=== PATIENT | male | born 1980 | race Two or more races ===

== ENCOUNTER 2024-09-20 10:07 | Outpatient (AMB) | payer MEDICAID, SELFPAY ==
[2024-09-20 10:09] VITALS: BP 154/100; PULSE 89; O2SAT 98
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
--- OUTSIDE RECORDS SUMMARY | 2024-09-20 11:27 | XMS_ITS | Clinical Summary ---
Author Organization [facility] Address [address] [place] [address] Phone Care Team Providers Care Senior Technical Support Engineer Name Role Phone Tal Phoenix MD Primary Care Provider [phone] Allergies No known active allergies Medications gabapentin (NEURONTIN) 300 mg capsule Take 1 capsule (300 mg total) by mouth 3 (three) times a day for 15 days. 45 each 03/01/2024 Active Social History Tobacco Use Types Packs/Day Years Used Date Smoking Tobacco: Never Smokeless Tobacco: Never Tobacco Cessation:Counseling Given: Not Answered Alcohol Use Standard Drinks/Week Comments Not Currently 0 (1 standard drink = 0.6 oz pur e alcohol) Sex and Gender Information Value Date Recorded Sex Assigned at Not on file Legal Sex Male 3:00 AM EST Gender Identity Not on file Sexual Orientation Not on file Obstetrics History Last Filed Vital Signs Vital Sign Reading Time Taken Comments Blood Pressure 201/91 03/01/2024 2:49 AM EST Pulse 86 03/01/2024 2:49 AM EST Temperature 37 C (98.6 F) 03/01/2024 2:49 AM EST Respiratory Rate 18 03/01/2024 2:49 AM EST Oxygen Saturation 97% 03/01/2024 2:49 AM EST Inhaled Oxygen Concentration - - Weight 161 kg (354 lb) 03/01/2024 2:49 AM EST Height 185.4 cm (6' 1 ) 03/01/2024 2:49 AM EST Body Mass Index 46.7 03/01/2024 2:49 AM EST Plan of Treatment Health Maintenance Due Date Last Done Comments HIV Screening 03/07/2022 Social Influencers of Health Screening 03/07/2022 COVID-19 Vaccine (2 - 2023-2 5 season) 2023 05/20/2021 Hypertension/CHF/CAD Annual BMP Blood Test 03/01/2024 Hepatitis B Vaccines (2 of 2 - CpG 2-dose series) 03/23/2024 02/24/2024 Depression Screening 02/23/2025 02/24/2024 Cholesterol Screening (Lipid Panel) 05/19/2027 05/19/2022, 05/19/2022 DTaP,Tdap,and Td Vaccines (2 - Td or Tdap) 11/14/2031 11/13/2021 Hepatitis C Screening Completed 05/20/2021 Influenza Vaccine Completed 02/24/2024 HIB Vaccines Aged Out No longer eligi ble based on patient's age to complete this topic HPV Vaccines Aged Out No longer eligi ble based on patient's age to complete this topic Hepatitis A Vaccines Aged Out No long er eligible based on patient's age to complete this topic IPV Vaccines Aged Out No longer eligi ble based on patient's age to complete this topic MMR Vaccines Aged Out No longer eligi ble based on patient's age to complete this topic Meningococcal ACWY Vaccine Aged Out N o longer eligible based on patient's age to complete this topic Meningococcal B Vaccine Aged Out No l onger eligible based on patient's age to complete this topic Pneumococcal Vaccine: Pediatrics (0 to 5 Years) and At-Risk Patients (6 to 64 Years) Aged Out No longer eligible b ased on patient's age to complete this topic RSV Immunization Patients Under 20 months Aged Out No longer eligible b ased on patient's age to complete this topic Varicella Vaccines Aged Out No longer eligible based on patient's age to complete this topic Insurance [employer] MEDICAID - [place] Care Teams Senior Technical Support Engineer Relationship Specialty Start Date End Date Tal Phoenix MD [address] [place] [id number] PCP - General Cardiology 03/01/24
== END 2024-09-20 11:34 | disposition home or self-care (01) ==
LOC: HO.HSMS 10:08
PROVIDERS: PCP Student in an Organized Health Care Education/Training Program; Visit Provider Nurse Practitioner Family
DX: G47.33 Obstructive sleep apnea (adult) (pediatric) (principal); F07.81 Postconcussional syndrome; G44.309 Post-traumatic headache, unspecified, not intractable; E66.01 Morbid (severe) obesity due to excess calories
CPT/HCPCS: 99204

== ENCOUNTER → 2024-09-20 10:07 | Outpatient (BNVA) | payer MEDICAID, SELFPAY | PROVIDERS: PCP Student in an Organized Health Care Education/Training Program; Visit Provider Nurse Practitioner Family | DX: G43.009 Migraine without aura, not intractable, without status migrainosus (principal); F07.81 Postconcussional syndrome; G47.33 Obstructive sleep apnea (adult) (pediatric); E66.01 Morbid (severe) obesity due to excess calories; Z68.45 Body mass index [BMI] 70 or greater, adult | CPT/HCPCS: 99212 ==

== ENCOUNTER 2024-09-21 09:21 | Outpatient (AMB) | payer MEDICAID, SELFPAY ==
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
[2024-09-21 09:32] VITALS: BMI 46.4
--- OUTSIDE RECORDS SUMMARY | 2024-09-21 09:39 | XMS_ITS | Clinical Summary ---
Author Organization [facility] Address [address] [place] [address] Phone Care Team Providers Care Cancer Registry Coordinator Name Role Phone Tal Phoenix MD Primary Care Provider [phone] Allergies No known active allergies Medications gabapentin [...] GENERIC PLAN MEDICAID - [place] Care Teams Cancer Registry Coordinator Relationship Specialty Start Date End Date Tal Phoenix MD [address] [place] [phone] PCP - General Cardiology 03/01/24
== END 2024-09-21 10:24 | disposition home or self-care (01) ==
LOC: HO.HNS 09:21
PROVIDERS: PCP Student in an Organized Health Care Education/Training Program; Visit Provider Physician Assistant
DX: M54.9 Dorsalgia, unspecified (principal)
CPT/HCPCS: 99204

== ENCOUNTER → 2024-09-21 09:21 | Outpatient (BNVA) | payer MEDICAID, SELFPAY | PROVIDERS: PCP Student in an Organized Health Care Education/Training Program; Visit Provider Physician Assistant | DX: M54.9 Dorsalgia, unspecified (principal) | CPT/HCPCS: 99212 ==

== ENCOUNTER 2024-10-19 13:47 | Outpatient (AMB) | payer MEDICAID, SELFPAY ==
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
--- OUTSIDE RECORDS SUMMARY | 2024-10-19 13:49 | XMS_ITS | Clinical Summary ---
Author Organization [facility] Address [address] [place] [address] Phone Care Team Providers Care Microbiology Professor Name Role Phone Tal Phoenix MD Primary Care Provider [phone] Allergies No known active allergies Medications gabapentin [...] Health Maintenance Due Date Last Done Comments Diabetes: Annual Foot Exam 1991 Diabetes: Annual Retina Eye Exam 1991 HIV Screening 03/07/2022 Social Influencers of Health Screening 03/07/2022 COVID-19 Vaccine ( season) 2023 05/20/2021 Diabetes: Blood Sugar Control Test (HGBA1C) 10/03/2024 04/05/2024 Influenza Vaccine (#1) 2024 02/24/2024 Diabetes: Annual Urine Albumin-Creatinine Ratio (uACR) 04/05/2025 04/05/2024 Diabetes: Annual GFR (Glomerular Filtration Rate) 04/05/2025 04/05/2024 Hypertension/CHF/CAD Annual BMP Blood Test 04/05/2025 04/05/2024 Depression Screening 08/07/2025 08/07/2024 Cholesterol Screening (Lipid Panel) 04/05/2029 04/05/2024, 04/05/2024, 05/19/2022, Additional history exists DTaP,Tdap,and Td Vaccines (2 - Td or Tdap) 11/14/2031 11/13/2021 Hepatitis C Screening Completed 05/20/2021 Hepatitis B Vaccines Completed 04/05/2024, 02/24/20 24 Pneumococcal Vaccine: Pediatrics (0 to 5 Years) and At-Risk Patients (6 to 49 Years) Aged Out 04/05/2024 No longer eligible based on patient's age to complete this topic HIB Vaccines Aged Out No longer eligi [...] 20 months Aged Out No longer eligible based on patient's age to complete this topic Varicella Vaccines Aged Out No longer eligible based on patient's age to complete this topic Insurance [employer] [facility] MEDICAID - [place] Care Teams Microbiology Professor Relationship Specialty Start Date End Date Tal Phoenix MD [address] [place] [phone] PCP - General Cardiology 03/01/24
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
== END 2024-10-19 14:39 | disposition home or self-care (01) ==
LOC: HO.HNS 13:47
PROVIDERS: PCP Student in an Organized Health Care Education/Training Program; Visit Provider Physician Assistant
DX: M54.9 Dorsalgia, unspecified (principal)
CPT/HCPCS: 99213

== ENCOUNTER → 2024-10-19 13:47 | Outpatient (BNVA) | payer MEDICAID, SELFPAY | PROVIDERS: PCP Student in an Organized Health Care Education/Training Program; Visit Provider Physician Assistant | DX: M46.1 Sacroiliitis, not elsewhere classified (principal); M54.9 Dorsalgia, unspecified | CPT/HCPCS: 99212 ==

== ENCOUNTER → 2024-10-22 20:30 | Outpatient (REF) | payer MEDICAID, SELFPAY | LOC: HO.SL 20:30 | PROVIDERS: PCP Dentist General Practice; Visit Provider Nurse Practitioner Family | DX: G47.33 Obstructive sleep apnea (adult) (pediatric) (principal); E66.01 Morbid (severe) obesity due to excess calories; Z68.41 Body mass index [BMI] 40.0-44.9, adult | CPT/HCPCS: 95810 ==

== ENCOUNTER → 2024-10-22 20:30 | Outpatient (BNV) | payer MEDICAID, SELFPAY | PROVIDERS: PCP Dentist General Practice; Visit Provider Psychiatry & Neurology Neurology | DX: G47.33 Obstructive sleep apnea (adult) (pediatric) (principal) | CPT/HCPCS: 95810 ==

== ENCOUNTER 2024-12-13 13:25 | Outpatient (AMB) | payer MEDICAID, SELFPAY ==
--- OUTSIDE RECORDS SUMMARY | 2024-12-10 14:00 | XMS_ITS | Encounter Summary ---
Author Organization [facility] Address [address] [facility] [place] [address] Care Team Providers Care Blade Filer Name Role Phone Tara Aguilar Primary Care Provider [phone] Encounter Details Date Type Department Care Team (Late st Contact Info) Description 12/10/2024 2:00 PM EDT / Visits [facility] [address] [place] [address] Tenzin Charlton LCSW [address] [place] [address] Social History Tobacco Use Types Packs/Day Years Used Date Smoking Tobacco: Former Passive Smoke Exposure: Never Smokeless Tobacco: Never Alcohol Use Standard Drinks/Week Comments Yes 0 (1 standard drink = 0.6 oz pur e alcohol) socially, once a month Social Connections Answer Date Recorded Connectedness 0 08/12/2021 Financial Resource Strain Answer Date R ecorded Financial Resource Strain 0 2021 Stress Answer Date Recorded Stress 0 08/12/2021 Physical Activity Answer Date Recorded Physical Activity 0 05/20/2021 Food Insecurity Answer Date Recorded Food 0 08/12/2021 Transportation Needs Answer Date Record ed Transportation 0 08/12/2021 Housing Stability Answer Date Recorded Housing 0 08/12/2021 Safety and Environment Answer Date Carlos rded Safety 0 08/12/2021 Utilities Answer Date Recorded Utilities 0 08/12/2021 Employment Answer Date Recorded Stress 0 08/12/2021 Sex and Gender Information Value Date Recorded Sex Assigned at Male 05/20/2021 1:36 PM PST Legal Sex Male 11:29 AM PDT Gender Identity Male 05/20/2021 1:36 PM PST Sexual Orientation Straight 05/20/2021 1: 36 PM PST documented as of this encounter Plan of Treatment Upcoming Encounters Date Type Department Care Team (Late st Contact Info) Description 12/24/2024 4:00 PM EDT / Visits [facility] [address] [place] [phone] Tenzin Charlton LCSW [address] [place] [address] documented as of this encounter Visit Diagnoses Diagnosis Anxiety- Primary Anxiety state, unspecified PTSD (post-traumatic stress disorder) Posttraumatic stress disorder Current moderate episode of major depressive disorder, unspecified whether recurrent (CMS & HHS-HCC) Current moderate episode of major depressive disorder (CMS & HHS-HCC) documented in this encounter Additional Health Concerns Assessment Noted Time PHQ-9 Depression Total Score: 26 025 9:57 AM PDT A Depression follow-up plan has been documented for the patient 05/20/2021 4:36 PM PST documented as of this encounter Care Teams Blade Filer Relationship Specialty Start Date End Date Tara Aguilar PA [address] [place] [address] PCP - General Primary Care 04/12/23 documented as of this encounter
--- NOTE | 2024-12-13 13:28 | HO.SPINEOV ---
Intake Visit Reasons: f/up injection Intake Note: Mr. Antoine is here to F/u after injections at pain management. Chief Creative Officer Required: No Allergies No Known Allergies Allergy (Verified 10/19/24 13:55) Assessment & Plan Assessment & Plan (1) Chronic SI joint pain: Code(s): M53.3 - Sacrococcygeal disorders, not elsewhere classified; G89.29 - Other chronic pain Category: Medical Plan Mr Antoine is here in follow-up after his 2nd left SI joint injection. He did get significant relief for 1 week. He was describe it as 60-70%. That is very optimistic that we could treat his back pain with the left SI joint fusion and hopefully be able to avoid fusing the L4-5 disc space. The patient has tenderness over the SI joint with positive OMAR sign and Gaenslen sign. He walks with a cane and discomfort in the SI joint area. Dr. Victor and I discussed previously he has potential for good surgical candidate and in light of the 2nd injection helping so much we are going to move forward with a left SI joint fusion. He does understand that he may need a lumbar fusion down the road at some point. We have tentatively scheduled him for January 10. The patient was given risk and benefits of surgery including but not limited to infection, hematoma, nerve injury, durotomy, weakness, bowel/bladder injury, persistent pain. We also discussed the option to continue with conservative treatment and patient wishes to proceed with surgery. They are aware they should stop NSAIDs 7 days prior to surgery. All questions were answered to the best of our ability. If there is anything about this patients medical history that we have overlooked or concerns you have about us proceeding with surgery we would appreciate any input you can offer Total amount of time spent in this visit was 20 minutes in discussion of symptoms, previous lumbar imaging results and subsequent plan of care Marcel Victor MD,PhD [facility] Medications: New [crutches] As directed 1 ea 0RF G89.29 - Other chronic pain, M53.3 - Sacrococcygeal disorders, not elsewhere classified Coding Level of Care Code Est Pt Level 3 (60638) Diagnoses Chronic SI joint pain M53.3; G89.29
--- OUTSIDE RECORDS SUMMARY | 2024-12-13 17:23 | XMS_ITS | Clinical Summary ---
Author Organization [facility] Address [address] [place] [address] Care Team Providers Care Carcass Splitter Name Role Phone Pcp, No Primary Care [...] of 3 - 19+ 3-dose series) 02/13/2000 HPV Vaccines (1 - 3-dose SCD M series) 02/13/2008 Influenza Vaccine 11/02/2024 COVID-19 Vaccine (2023-2 5 season) 2024 Pneumococcal Vaccine: Pediat nandini (0-5 Years) and At-Risk Patients (6 to 49 Years) Aged Out No longer eligible b ased on patient's age to complete this topic Insurance [facility] [employer] Care Teams Carcass Splitter Relationship Specialty Start Date End Date Pcp, No PCP - General General Medicine 01/25/16
--- OUTSIDE RECORDS SUMMARY | 2024-12-13 17:23 | XMS_ITS | Clinical Summary ---
Author Organization [facility] Address [address] [facility] [address] [place] [address] Care Team Providers Care Guard Range Name Role Phone Unavailable Primary Care Provider Unavailabl e Encounters Date Type Department Care Team Description 10/23/2024 Population Health Risk Score [facility] (C[facility]) Department [address] [facility] [address] [place] [phone] Provider, Population Health Generic from Last 3 Months Social History Tobacco Use Types Packs/Day Years Used Date Smoking Tobacco: Never Assessed Sex and Gender Information Value Date Recorded Sex Assigned at Not on file Legal Sex Male 9:26 PM EDT Gender Identity Not on file Sexual Orientation Not on file Plan of Treatment Health Maintenance Due Date Last Done Comments Depression Screening 1981 Lipid Panel 1981 SDOH Screening 1981 Disability Screening 1981 Alcohol/Substance Use Screening 1993 Tobacco Screening 1993 Family Planning (PISQ) 02/13/1996 HPV Vaccines (1 - Male 3-dos e series) 02/13/1996 Hepatitis C Screening 1999 COVID-19 Vaccine (2 - 2024-2 6 season) 2024 05/20/2021 Influenza Vaccine (#1) 2024 02/24/2024 Zoster Vaccines (1 of 2) 2031 DTaP/Tdap/Td Vaccines (2 - T d or Tdap) 11/14/2031 11/13/2021 RSV Patients and Patients Aged 60 years or older (1 - 1-dose 75+ series) 02/13/2056 HIV Screening Completed 05/20/2021, 05/20/2021 Hepatitis B Vaccines Completed 04/05/2024, 02/24/2024 Pneumococcal Vaccine: Pediatrics (0 to 5 Years) and At-Risk Patients (6 to 49) Years Aged Out 04/05/2024 No longer eligible b ased on patient's [...] patient's age to complete this topic Meningococcal Vaccine Aged Out No juan jose shelby eligible based on patient's age to complete this topic RSV under 20 months Aged Out No longe r eligible based on patient's age to complete this topic Rotavirus Vaccines Aged Out No longer eligible based on patient's age to complete this topic
--- OUTSIDE RECORDS SUMMARY | 2024-12-13 17:23 | XMS_ITS | Clinical Summary ---
Author Organization [facility] Address [address] [place] [address] Care Team Providers Care Saw Cleaner Name Role Phone Tara Aguilar Primary Care Provider Source Comments PLEASE NOTE, if this patient is a minor, it may be UNLAWFUL to discuss sensitive information that is contained in these records (such as FAMILY PLANNING, MENTAL HEALTH or SUBSTANCE ABUSE) with the minor patient's parent or other person without the patient's specific authorization.[facility] Allergies No known active allergies Medications blood pressure monitorIndications :Primary hypertension Lifetime need. Please dispense extra large cuff 1 Kit 05/19/19 Active blood-glucose meter monitoring kitIndications:New onset type 2 diabetes mellitus ([facility]) as needed for blood glucose monitoring Use to check BS daily. 1 Each 05/21/19 Active lancets (FREESTYLE LANCETS) 28 gaugeIndications:N ew onset type 2 diabetes mellitus ([facility]) Use to check BS daily. 100 Each 05/21/19 Active blood sugar diagnostic stripsIndications: New onset type 2 diabetes mellitus ([facility]) 1 Each daily Use to check BS daily. 100 Each 1 05/21/19 Active blood-glucose sensor (FREESTYLE JACQUELINE 3 SENSOR) deviIndications:Ty pe 2 diabetes mellitus with hyperglycemia, with long-term current use of insulin ([facility]) Inject 1 Each into the skin every 14 (fourteen) days 6 Each 06/16/19 Active pen needle, diabetic (COMFORT EZ PEN NEEDLES) 32 gauge x 5/32 ndleIndications:Ty pe 2 diabetes mellitus with hyperglycemia, unspecified whether penitentiary insulin use ([facility]) Use 1 needle for each injection qid 360 Each 1 03/27/20 23 Active metFORMIN (GLUCOPHAGE) 1,000 mg tabletIndications: New onset type 2 diabetes mellitus ([facility]) Take 1 Tablet by mouth 2 (two) times daily with a meal Take 1/2 a tablet once a day for 7 days, then take 1 tablet once a day for 7 days, then take 2 tablets once a day for 7 days then take 2 tablets twice a day 180 Tablet 1 04/05/19 25 Active MISCELLANEOUS MEDICAL SUPPLY MISCIndications:De generation of L4-L5 intervertebral disc,DDD (degenerative disc disease), cervical Please dispense one heating pad. Dx: Cervical DDD and Degeneration of L4-L5 Intervertebral disc Duration: lifetime 1 Each 08/08/19 25 Active MISCELLANEOUS MEDICAL SUPPLY MISCIndications:Pr imary hypertension Please dispense one BP monitor. BMI 48. Dx: HTN Duration: 99 years 1 Each 08/08/19 25 Active losartan (COZAAR) 50 mg tabletIndications: Primary hypertension TAKE 1 TABLET BY MOUTH EVERY DAY 90 Tablet 10/03/19 25 Active multivitamin tablet Take 1 Tablet by mouth once daily. 90 Tablet 1 10/03/19 25 Active alcohol swabsIndications:T ype 2 diabetes mellitus with hyperglycemia, unspecified whether penitentiary insulin use ([facility]) Use 1 pad with each insulin injection 4 times daily. 450 Each 5 10/03/19 25 Active cyclobenzaprine (FLEXERIL) 10 mg tabletIndications: Degeneration of L4-L5 intervertebral disc Take 1 Tablet by mouth 2 (two) times daily as needed for muscle spasms. 30 Tablet 09/27/19 25 Active multivitamin with folic acid (DAILY-OZZY, WITH FOLIC ACID,) 400 mcg tab Take 1 Tablet by mouth once daily. 90 Tablet 1 09/27/19 25 Active MISCELLANEOUS MEDICAL SUPPLY MISCIndications:DD D (degenerative disc disease), cervical by miscellaneous route daily cane. 1 Each 09/27/19 25 Active vitamin B complex capsule Take 1 Capsule by mouth once daily for 90 days. 90 Capsule 09/27/19 25 025 Active atorvastatin (LIPITOR) 20 mg tabletIndications: Other hyperlipidemia TAKE 1 TABLET BY MOUTH EVERYDAY AT BEDTIME 90 Tablet 1 10/24/19 25 Active QUEtiapine (SEROQUEL XR) 50 mg Tb24 24 hr tabletIndications: Severe episode of recurrent major depressive disorder, with psychotic features (CMS & HHS-HCC) Take 2 Tablets by mouth nightly at bedtime for 90 days. 60 Tablet 2 11/06/19 25 025 Active DULoxetine (CYMBALTA) [address] capsuleIndications :Severe episode of recurrent major depressive disorder, with psychotic features (CMS & HHS-HCC),PTSD (post-traumatic stress disorder),Anxiety Take 1 Capsule by mouth once daily for 90 days. 30 Capsule 2 11/06/19 25 025 Active Active Problems Problem Noted Date Diagnosed Date Current moderate episode of major depressive disorder ([facility]) 10/29/2024 Degeneration of L4-L5 intervertebral disc 2024 DDD (degenerative disc disease), cervical 2024 Overview (07/14/2024): MR Cervical 06/2024: C6-7: Degenerative disc changes are present with disc desiccation. Mild disc bulging is present. The central canal and neural foramen are patent. PTSD (post-traumatic stress disorder) 05/14/2024 Anxiety 05/14/2024 Other hyperlipidemia 04/06/2024 Anxiety and depression 02/24/2024 Overview (02/24/2024): Referred to [facility] Obstructive sleep apnea syndrome 01/31/2022 Overview (01/31/2022): Underwent sleep study 12/2021. CPAP recommended Gout, arthritis 05/20/2021 Primary hypertension 05/20/2021 Class 3 severe obesity due t o excess calories without serious comorbidity with body mass index (BMI) of 40.0 to 44.9 in adult ([facility]) 05/20/2021 Work related injury 01/29/2016 Encounters Date Type Department Care Team Description 12/10/2024 2:00 PM EDT /MH Visits [facility] [address] [place] [address] Tenzin Charlton LCSW 11/12/2024 3:00 PM EDT BH/MH Visits [facility] [address] [place] [address] Tenzin Charlton LCSW 11/05/2024 11:00 AM EDT BH/MH Visits [address] [phone] Gerri Sr, SOCIAL MEDIA CONTENT SPECIALIST 10/29/2024 9:00 AM EDT BH/MH Visits [facility] [address] [place] [address] Tenzin Charlton LCSW 10/15/2024 11:00 AM EDT BH/MH Visits [facility] [address] [place] [address] Tenzin Charlton LCSW 09/28/2024 2:00 PM EDT BH/MH Visits [facility] [address] [place] [phone] Tenzin Charlton LCSW 09/27/2024 Interim Notes [address] [address] Gwendolyn Cho PR 09/26/2024 9:40 AM EDT Office Visit [address] [address] Akanksha Beavers, [facility] 09/21/2024 1:00 PM EDT BH/MH Visits [address] [phone] Gerri Sr, SOCIAL MEDIA CONTENT SPECIALIST 09/14/2024 2:00 PM EDT BH/MH Visits [facility] [address] [place] [address] Tenzin Charlton, SPORTING [employer] SALES ASSOCIATE from Last 3 Months Immunizations Immunization Administration Dates Next Due Hep B,adult,adjuvanted (HEPLISAV) 04/05/2024, Influenza (FLUBLOK),recombinant,injectable,preservative Free 02/24/2024 Moderna COVID-19 Vaccine, re d cap blue label, 12+ Primary Series 05/20/2021 PNEUMOCOCCAL CONJUGATE PCV 20 (Prevnar 20) 04/05 TDAP 11/13/2021 Social History Tobacco Use Types Packs/Day Years Used Date Smoking Tobacco: Former Passive Smoke Exposure: Never Smokeless Tobacco: Never Tobacco Cessation:Counseling Given: Not Answered Alcohol Use Standard Drinks/Week Comments Yes 0 [...] Orientation Straight 05/20/2021 1: 36 PM PST Last Filed Vital Signs Vital Sign Reading Time Taken Comments Blood Pressure 162/100 09/26/2024 9:56 AM EDT Pulse 88 09/26/2024 9:56 AM EDT Temperature 36.6 C (97.9 F) 09/26/2024 9:56 AM EDT Respiratory Rate 20 09/26/2024 9:56 AM EDT Oxygen Saturation 98% 09/26/2024 9:56 AM EDT Inhaled Oxygen Concentration - - Weight 158.8 kg (350 lb) 09/26/2024 9:56 AM EDT Height 185.4 cm (6' 1 ) 09/26/2024 9:56 AM EDT Body Mass Index 46.18 09/26/2024 9:56 AM EDT Plan of Treatment Upcoming Encounters Date Type Department Care Team (Late st Contact Info) Description 12/24/2024 4:00 PM EDT / Visits [facility] [address] [place] [phone] Tenzin Charlton LCSW [address] [place] [address] Health Maintenance Due Date Last Done Comments Dental Examination 1981 Hemoglobin A1c 10/03/2024 04/05/2024, 05/05, 05/20/2021 [id number] ( - season) 2024 022 Imm-Influenza (#1) 2024 02/24/2024 Depression Monitoring 12/27/2024 09/26/2024 , 08/07/2024, 02/24/2024, Additional history exists Annual Wellness (Adult): Indicated (All Coverage) 04/05/2025 04/05/2024, 05/20/2021 Diabetes Foot Exam 04/05/2025 04/05/2024, 07/27/2022 Lipid Screening 04/05/2025 04/05/2024, 05/05, 05/20/2021 Serum Creatinine 04/05/2025 04/05/2024, , 05/20/2021 Urine Albumin Creatinine Rat io Screening 04/05/2025 04/05/2024 Retinopathy Screening 09/04/2025 09/04/2024 Anxiety Screening 09/26/2025 09/26/2024 Tobacco Screening 11/05/2025 11/05/2024, 05/20/2021 Imm-DTaP/Tdap/Td (2 - Td or Tdap) 11/14/2031 022 HIV Screening Completed 05/20/2021 Hepatitis C Screening Completed 05/20/2021 Alcohol and Drug Screen Completed 04/05/19, 02/24/2024, 08/04/2022, Additional history exists Imm-Hepatitis B Completed 04/05/2024, 02/24/2024 Imm-Pneumococcal Completed 04/05/2024 Procedures Procedure Name Priority Date/Time Associated Diagnosis Comments OTHER ORDERS SCANNED DOCUMENT 10/17/2024 3:00 AM EDT REFERRAL TO OPHTHALMOLOGY Routine 09/04/2024 3:00 AM EDT New onset type 2 diabetes mellitus ([facility]) COMPREHENSIVE METABOLIC PANEL Routine 04/05/2024 3:18 PM EST Routine general medical examination at a health care facility New onset type 2 diabetes mellitus ([facility]) Primary hypertension Class 3 severe obesity due to excess calories without serious comorbidity with body mass index (BMI) of 40.0 to 44.9 in adult ([facility]) LIPID PANEL Routine 04/05/2024 3:18 PM EST Routine general medical examination at a health care facility New onset type 2 diabetes mellitus ([facility]) Primary hypertension Class 3 severe obesity due to excess calories without serious comorbidity with body mass index (BMI) of 40.0 to 44.9 in adult ([facility]) MICROALBUMIN/CREATININ E RATIO, URINE, RANDOM Routine 04/05/2024 3:18 PM EST Routine general medical examination at a health care facility New onset type 2 diabetes mellitus ([facility]) HEMOGLOBIN GLYCOSYLATED A1C Routine 04/05/2024 3:18 PM EST Routine general medical examination at a the rehabilitation institute facility New onset type 2 diabetes mellitus ([facility]) Primary hypertension Class 3 severe obesity due to excess calories without serious comorbidity with body mass index (BMI) of 40.0 to 44.9 in adult ([facility]) HIV 1/2 AG & AB W/RFLX (4TH GEN) Routine 05/20/2021 4:30 PM EST Screening for viral disease HEPATITIS C AB W/RFLX HCV RNA, QT, RT PCR Routine 05/20/2021 4:30 PM EST Screening for viral disease from Last 3 Months or Most Recently Relevant to Health Maintenance Results * OTHER ORDERS SCANNED DOCUMENT (10/17/2024 3:00 AM EDT) 10/17/2024 3:00 AM EDT us Gus Lim MD SCAN OTHER ORDERS Final Resu lt * REFERRAL TO OPTHALMOLOGY (09/04/2024 3:00 AM EDT) 09/04/2024 3:00 AM EDT Tara BOCANEGRA REFERRAL Final Result * MICROALBUMIN/CREATININE RATIO, URINE, RANDOM (04/05/2024 3:18 PM EST) CREATININE, RANDOM URINE 245 20 - 320 mg/dL [facility] MICROALBUMIN 2.7 mg/dL Every[facility] Comment: Reference Range Not established MICROALBUMIN/CREA TININE RATIO, RANDOM URINE 11 <30 mg/g creat [facility] Comment: The ADA defines abnormalities in albumin excretion as follows: Albuminuria Category Result (mg/g creatinine) Normal to Mildly increased <30 Moderately increased 30-299 Severely increased > OR = 300 The ADA recommends that at least two of three specimens collected within a 3-6 month period be abnormal before considering a patient to be within a diagnostic category. Urine Urine specimen / Unknown 04/05/2024 3:18 PM EST 04/05/2024 3:19 PM EST Jakub Phoenix MD LAB URINE AMBULATORY Final Resu lt [facility] [address] [address], [facility] [address] [address] * (ABNORMAL) HEMOGLOBIN GLYCOSYLATED A1C (04/05/2024 3:18 PM EST) HEMOGLOBIN A1C 6.7(H) <5.7 % of total Hgb [facility] Comment: For someone without known diabetes, a hemoglobin A1c value of 6.5% or greater indicates that they may have diabetes and this should be confirmed with a follow-up test. For someone with known diabetes, a value <7% indicates that their diabetes is well controlled and a value greater than or equal to 7% indicates suboptimal control. A1c targets should be individualized based on duration of diabetes, age, comorbid conditions, and other considerations. Currently, no consensus exists regarding use of hemoglobin A1c for diagnosis of diabetes for children. Blood Blood / Unknown 04/05/2024 3 :18 PM EST 04/05/2024 3:19 PM EST Jakub Phoenix MD LAB - BLOOD DRAW Edited Result - Final Performing Organization Address City/[facility]/ZIP Co de Phone Number [facility] [address] [address], [place] [address] [address] * (ABNORMAL) LIPID PANEL (04/05/2024 3:18 PM EST) [facility] Signature CHOLESTEROL, TOTAL 255(H) <200 mg/dL [facility] HDL CHOLESTEROL 41 > OR = 40 mg/dL [facility] TRIGLYCERIDES 276(H) <150 mg/dL [facility] Comment: If a non-fasting specimen was collected, consider repeat triglyceride testing on a fasting specimen if clinically indicated. Anita et al. J. of Clin. Lipidol. 2015;9:129-169. LDL-CHOLESTEROL 169(H) 99 mg/dL (calc) [facility] Comment: Reference range: <100 Desirable range <100 mg/dL for primary prevention; <70 mg/dL for patients with CHD or diabetic patients with > or = 2 CHD risk factors. LDL-C is now calculated using the Jeremy-Acharya calculation, which is a validated novel method providing better accuracy than the Friedewald equation in the estimation of LDL-C. Jeremy SS et al. DWAYNE. 2013;310(19): 8128-7174 (http://education.[employer]igo[employer]/faq/LXJ133) CHOL/HDLC RATIO 6.2(H) <5.0 (calc) [facility] NON-HDL CHOLESTEROL 214(H) <130 mg/dL (calc) [facility] Comment: For patients with diabetes plus 1 major ASCVD risk factor, treating to a non-HDL-C goal of <100 mg/dL (LDL-C of <70 mg/dL) is considered a therapeutic option. Blood Blood / Unknown 04/05/2024 3 :18 PM EST 04/05/2024 3:19 PM EST aJkub Phoenix MD LAB - BLOOD DRAW Final Result [facility] [address] [address], [facility] [address] [place] [address] * (ABNORMAL) COMPREHENSIVE METABOLIC PANEL (04/05/2024 3:18 PM EST) GLUCOSE 134(H) 65 - 99 mg/dL [facility] Comment: For someone without known diabetes, a glucose value >125 mg/dL indicates that they may have diabetes and this should be confirmed with a follow-up test. Fasting reference interval UREA NITROGEN (BUN) 14 7 - 25 mg/dL [facility] CREATININE (blood) 0.83 0.60 - 1.29 mg/dL [facility] EGFR 111 > OR = 60 mL/min/1. 73m2 [facility] BUN/CREATININE RATIO SEE NOTE: [facility] Comment: Not Reported: BUN and Creatinine are within reference range. SODIUM 138 135 - 146 mmol/L [facility] POTASSIUM 4.1 3.5 - 5.3 mmol/L [facility] CHLORIDE 100 98 - 110 mmol/L [facility] CARBON DIOXIDE 31 20 - 32 mmol/L [facility] CALCIUM 9.1 8.6 - 10.3 mg/dL [facility] PROTEIN, TOTAL 7.3 6.1 - 8.1 g/dL [facility] ALBUMIN 4.1 3.6 - 5.1 g/dL [facility] GLOBULIN 3.2 1.9 - 3.7 g/dL (calc) [facility] ALBUMIN/GLOBULI N RATIO 1.3 1.0 - 2.5 (calc) [facility] BILIRUBIN, TOTAL 0.4 0.2 - 1.2 mg/dL [facility] ALKALINE PHOSPHATASE 76 36 - 130 U/L [facility] AST 14 10 - 40 U/L [facility] ALT 25 9 - 46 U/L [facility] Blood Blood / Unknown 04/05/2024 3 :18 PM EST 04/05/2024 3:19 PM EST Jakub Phoenix MD LAB - BLOOD DRAW Edited Result - Final [facility] [address] [address], [place] [address] [address] * HEPATITIS C AB W/RFLX HCV RNA, QT, RT PCR (05/20/2021 4:30 PM EST) HEPATITIS C ANTIBODY NON-REACT STEVEN NON-REACT STEVEN [facility] SIGNAL TO CUT-OFF 0.03 <1.00 [facility] Comment: HCV antibody was non-reactive. There is no laboratory evidence of HCV infection. In most cases, no further action is required. However, if recent HCV exposure is suspected, a test for HCV RNA (test code 98961) is suggested. For additional information please refer to http://NETpeas.DxTerity/faq/YBG49z5 (This link is being provided for informational/ educational purposes only.) Blood Blood / Unknown 05/20/2021 4 :30 PM EST 05/20/2021 4:30 PM EST Jerilyn Morales SOCIAL MEDIA CONTENT SPECIALIST-C LAB - BLOOD DRAW Final Resul t [facility] [address] [address], [facility] [address] [address] * HIV 1/2 AG & AB W/RFLX (4TH GEN) (05/20/2021 4:30 PM EST) Pathologist [facility] HIV AG/AB, 4TH GEN NON-REAC TIVE NON-REAC TIVE [facility] Comment: HIV-1 antigen and HIV-1/HIV-2 antibodies were not detected. There is no laboratory evidence of HIV infection. PLEASE NOTE: This information has been disclosed to you from records whose confidentiality may be protected by state law. If your state requires such protection, then the state law prohibits you from making any further disclosure of the information without the specific written consent of the person to whom it pertains, or as otherwise permitted by law. A general authorization for the release of medical or other information is NOT sufficient for this purpose. For additional information please refer to http://education.Magin.PokitDok/faq/TMC452 (This link is being provided for informational/ educational purposes only.) The performance of this assay has not been clinically validated in patients less than 2 years old. Blood Blood / Unknown 05/20/2021 4 :30 PM EST 05/20/2021 4:30 PM EST Jerilyn Morales SOCIAL MEDIA CONTENT SPECIALIST-C LAB - BLOOD DRAW Final Resul t [facility] [address] [facility] [address] [place] [address], [facility] [address] [address] from Last 3 Months or Most Recently Relevant to Health Maintenance Insurance [facility] [employer] [address] [employer] Care Teams Saw Cleaner Relationship Specialty Start Date End Date Tara Aguilar PA [address] [place] [address] PCP - General Primary Care 04/12/23
== END 2024-12-13 13:53 | disposition home or self-care (01) ==
LOC: HO.HNS 13:25
PROVIDERS: PCP Dentist General Practice; Visit Provider Physician Assistant
DX: M53.3 Sacrococcygeal disorders, not elsewhere classified (principal); G89.29 Other chronic pain
CPT/HCPCS: 99213

== ENCOUNTER → 2024-12-13 13:25 | Outpatient (BNVA) | payer MEDICAID, SELFPAY | PROVIDERS: PCP Dentist General Practice; Visit Provider Physician Assistant | DX: M53.3 Sacrococcygeal disorders, not elsewhere classified (principal); G89.29 Other chronic pain | CPT/HCPCS: 99212 ==

== ENCOUNTER 2025-01-31 07:08 | Day surgery (SDC) | payer MEDICAID, SELFPAY ==
--- OUTSIDE RECORDS SUMMARY | 2024-12-20 15:29 | XMS_ITS | Clinical Summary ---
Author Organization [facility] Address [address] [place] [address] Phone Care Team Providers Care Trip Rider Name Role Phone Tal Phoenix MD Primary Care Provider [phone] Allergies No known active allergies Medications gabapentin [...] 03/07/2022 Social Influencers of Health Screening 03/07/2022 Depression Screening 04/04/2024 COVID-19 Vaccine ( season) 2024 05/20/2021 Influenza Vaccine (#1) 2024 02/24/2024 Hypertension/CHF/CAD Annual BMP Blood Test 04/05/2025 04/05/2024 Cholesterol Screening (Lipid Panel) 04/05/2029 04/05/2024, 04/05/2024, [...] to complete this topic Insurance [employer] [place] - [place] Care Teams Trip Rider Relationship Specialty Start Date End Date Tal Phoenix MD [address] [place] [phone] PCP - General Cardiology 03/01/24
--- OUTSIDE RECORDS SUMMARY | 2024-12-20 15:29 | XMS_ITS | Clinical Summary ---
Author Organization [facility] Address [address] [place] [address] Care Team Providers Care Marine Railway Operator Name Role Phone Unavailable Primary Care Provider Unavailabl e Encounters Date Type Department Care Team Description 10/23/2024 Population Health Risk Score [facility] (C3) Department [address] [facility] [address] [place] [phone] Provider, Population Health Generic from Last 3 [...]
--- OUTSIDE RECORDS SUMMARY | 2024-12-20 15:29 | XMS_ITS | Clinical Summary ---
Author Organization [facility] Address [address] [place] [address] Care Team Providers Care Operations Recruiter Name Role Phone Pcp, No Primary Care [...] patient's age to complete this topic Insurance [facility] [employer] Care Teams Operations Recruiter Relationship Specialty Start Date End Date Pcp, No PCP - General General Medicine 01/25/16
--- OUTSIDE RECORDS SUMMARY | 2024-12-20 15:29 | XMS_ITS | Clinical Summary ---
Author Organization [facility] Address [address] [place] [address] Care Team Providers Care Vice President Underwriting Name Role Phone Tara Aguilar Primary Care Provider [phone] Source Comments PLEASE NOTE, if this patient [...] monitoring kitIndications:New onset type 2 diabetes mellitus ([facility]) as needed for blood glucose monitoring Use to check BS daily. 1 Each 05/21/19 Active lancets (FREESTYLE LANCETS) 28 gaugeIndications:N ew onset type 2 diabetes mellitus ([facility]) Use to check BS daily. 100 Each 05/21/19 Active blood sugar diagnostic stripsIndications: New onset type 2 diabetes mellitus ([facility]) 1 Each daily Use to check BS daily. 100 Each 1 05/21/19 Active blood-glucose sensor (FREESTYLE JACQUELINE 3 SENSOR) deviIndications:Ty pe 2 diabetes mellitus with hyperglycemia, with long-term current use of insulin ([facility]) Inject 1 Each into the skin every 14 (fourteen) days 6 Each 06/16/19 Active pen needle, diabetic (COMFORT EZ PEN NEEDLES) 32 gauge x 5/32 ndleIndications:Ty pe 2 diabetes mellitus with hyperglycemia, unspecified whether residential insulin use ([facility]) Use 1 needle for each injection qid 360 Each 1 03/27/20 23 Active metFORMIN (GLUCOPHAGE) 1,000 mg tabletIndications: New onset type 2 diabetes mellitus ([facility]) Take 1 Tablet by mouth 2 (two) [...] 2 diabetes mellitus with hyperglycemia, unspecified whether residential insulin use ([facility]) Use 1 pad with each insulin injection [...] Current moderate episode of major depressive disorder ([facility]) 10/29/2024 Degeneration of L4-L5 intervertebral disc 2024 DDD (degenerative disc disease), cervical 2024 Overview (07/14/2024): MR Cervical 06/2024: C6-7: Degenerative disc changes are present with disc desiccation. Mild disc bulging is present. The central canal and neural foramen are patent. PTSD (post-traumatic stress disorder) 05/14/2024 Anxiety 05/14/2024 Other hyperlipidemia 04/06/2024 Anxiety and depression 02/24/2024 Overview (02/24/2024): Referred to [facility] Obstructive sleep apnea syndrome 01/31/2022 Overview (01/31/2022): Underwent sleep study 12/2021. CPAP recommended Gout, arthritis 05/20/2021 Primary hypertension 05/20/2021 Class 3 severe obesity due t o excess calories without serious comorbidity with body mass index (BMI) of 40.0 to 44.9 in adult ([facility]) 05/20/2021 Work related injury 01/29/2016 Encounters Date Type Department Care Team Description 12/10/2024 2:00 PM EDT /MH Visits [facility] [address] [place] [address] Tenzin Charlton LCSW 11/12/2024 3:00 PM EDT BH/MH Visits [facility] [address] [place] [address] Tenzin Charlton, CHART COMPUTER 11/05/2024 11:00 AM EDT BH/MH Visits [address] [phone] Gerri Sr FNP 10/29/2024 9:00 AM EDT BH/MH Visits [facility] [address] [place] [address] Tenzin Charlton, CHART COMPUTER 10/15/2024 11:00 AM EDT BH/MH Visits [facility] [address] [place] [address] Tenzin Charlton, CHART COMPUTER 09/28/2024 2:00 PM EDT BH/MH Visits [facility] [address] [place] [phone] Tenzin Charlton, CHART COMPUTER 09/27/2024 Interim Notes [address] [address] Gwendolyn Cho [place] 09/26/2024 9:40 AM EDT Office Visit [address] [address] Akanksha Beavers FNP 09/21/2024 1:00 PM EDT /MH Visits [address] [phone] Gerri Sr FNP from Last 3 Months Immunizations Immunization Administration [...] Description 12/24/2024 4:00 PM EDT / Visits [facility] [address] [place] [address] Tenzin Charlton, CHART COMPUTER [address] [place], [place] [phone] Health Maintenance Due Date Last Done Comments Dental Examination 1981 Imm-HPV (1 - 3-dose SCDM series) 02/13/2008 Hemoglobin A1c 10/03/2024 04/05/2024, 05/05, 05/20/2021 [id number] ( season) 2024 022 Imm-Influenza (#1) 2024 02/24/2024 [...] Procedure Name Priority Date/Time Associated Diagnosis Comments REFERRAL TO PAIN MANAGEMENT Routine 12/13/2024 3:00 AM EDT DDD (degenerative disc disease), cervical OTHER ORDERS SCANNED DOCUMENT 10/17/2024 3:00 AM EDT REFERRAL TO OPHTHALMOLOGY Routine 09/04/2024 3:00 AM EDT New onset type 2 diabetes mellitus ([facility]) COMPREHENSIVE METABOLIC PANEL Routine 04/05/2024 3:18 PM EST Routine general medical examination at a health care facility New onset type 2 diabetes mellitus ([facility]) Primary hypertension Class 3 severe obesity due to excess calories without serious comorbidity with body mass index (BMI) of 40.0 to 44.9 in adult ([facility]) LIPID PANEL Routine 04/05/2024 3:18 PM EST Routine general medical examination at a health care facility New onset type 2 diabetes mellitus ([facility]) Primary hypertension Class 3 severe obesity due to excess calories without serious comorbidity with body mass index (BMI) of 40.0 to 44.9 in adult ([facility]) MICROALBUMIN/CREATININ E RATIO, URINE, RANDOM Routine 04/05/2024 3:18 PM EST Routine general medical examination at a health care facility New onset type 2 diabetes mellitus ([facility]) HEMOGLOBIN GLYCOSYLATED A1C Routine 04/05/2024 3:18 PM EST Routine general medical examination at a health care facility New onset type 2 diabetes mellitus ([facility]) Primary hypertension Class 3 severe obesity due to excess calories without serious comorbidity with body mass index (BMI) of 40.0 to 44.9 in adult ([facility]) HIV 1/2 AG & AB W/RFLX (4TH GEN) Routine 05/20/2021 4:30 PM EST Screening for viral disease HEPATITIS C AB W/RFLX HCV RNA, QT, RT PCR Routine 05/20/2021 4:30 PM EST Screening for viral disease from Last 3 Months or Most Recently Relevant to Health Maintenance Results * REFERRAL TO PAIN MANAGEMENT (12/13/2024 3:00 AM EDT) 12/13/2024 3:00 AM EDT Akanksha Beavers NEURO UROLOGIST REFERRAL Glenda l Result * OTHER ORDERS SCANNED DOCUMENT (10/17/2024 3:00 AM EDT) 10/17/2024 3:00 AM EDT Gus Lim MD SCAN OTHER ORDERS Final Resu lt * REFERRAL TO OPTHALMOLOGY (09/04/2024 3:00 AM EDT) 09/04/2024 3:00 AM EDT Tara BOCANEGRA REFERRAL Final Result * MICROALBUMIN/CREATININE RATIO, URINE, RANDOM (04/05/2024 3:18 PM EST) CREATININE, RANDOM URINE 245 20 - 320 mg/dL [employer] MICROALBUMIN 2.7 mg/dL [employer] Comment: Reference Range Not established MICROALBUMIN/CREA TININE RATIO, RANDOM URINE 11 <30 mg/g creat [employer] Comment: The ADA defines abnormalities in albumin [...] MD LAB URINE AMBULATORY Final Resu lt [employer] [address] [place] [id number], [employer] [address] [place] [phone] * (ABNORMAL) HEMOGLOBIN GLYCOSYLATED A1C (04/05/2024 3:18 PM EST) HEMOGLOBIN A1C 6.7(H) <5.7 % of total Hgb [employer] Comment: For someone without known diabetes, a [...] - BLOOD DRAW Edited Result - Final [employer] [address] [place] [phone], [employer] [address] [place] [phone] * (ABNORMAL) LIPID PANEL (04/05/2024 3:18 PM EST) CHOLESTEROL, TOTAL 255(H) <200 mg/dL [employer] HDL CHOLESTEROL 41 > OR = 40 mg/dL [employer] TRIGLYCERIDES 276(H) <150 mg/dL [employer] Comment: If a non-fasting specimen was collected, consider repeat triglyceride testing on a fasting specimen if clinically indicated. Anita et al. J. of Clin. Lipidol. 2015;9:129-169. LDL-CHOLESTEROL 169(H) 99 mg/dL (calc) [employer] Comment: Reference range: <100 Desirable range <100 mg/dL for primary prevention; <70 mg/dL for patients with CHD or diabetic patients with > or = 2 CHD risk factors. LDL-C is now calculated using the Jeremy-Patrizia calculation, which is a validated novel method providing better accuracy than the Friedewald equation in the estimation of LDL-C. Jeremy MARTINEZ et al. DWAYNE. 2013;310(19): 3074-5789 (http://education.LuckyCal.Upmann's/faq/MEX290) CHOL/HDLC RATIO 6.2(H) <5.0 (calc) [employer] NON-HDL CHOLESTEROL 214(H) <130 mg/dL (calc) [employer] Comment: For patients with diabetes plus 1 major ASCVD risk factor, treating to a non-HDL-C goal of <100 mg/dL (LDL-C of <70 mg/dL) is considered a therapeutic option. Blood Blood / Unknown 04/05/2024 3 :18 PM EST 04/05/2024 3:19 PM EST Jakub Phoenix MD LAB - BLOOD DRAW Final Result [employer] [facility] [address] [address], [employer] [facility] [address] [place] [address] * (ABNORMAL) COMPREHENSIVE METABOLIC PANEL (04/05/2024 3:18 PM EST) GLUCOSE 134(H) 65 - 99 mg/dL [employer] [facility] Comment: For someone without known diabetes, a glucose value >125 mg/dL indicates that they may have diabetes and this should be confirmed with a follow-up test. Fasting reference interval UREA NITROGEN (BUN) 14 7 - 25 mg/dL [employer] [facility] CREATININE (blood) 0.83 0.60 - 1.29 mg/dL [employer] EGFR 111 > OR = 60 mL/min/1. 73m2 [employer] BUN/CREATININE RATIO SEE NOTE: [employer] [facility] Comment: Not Reported: BUN and Creatinine are within reference range. SODIUM 138 135 - 146 mmol/L [employer] [facility] POTASSIUM 4.1 3.5 - 5.3 mmol/L [employer] CHLORIDE 100 98 - 110 mmol/L [employer] CARBON DIOXIDE 31 20 - 32 mmol/L [employer] CALCIUM 9.1 8.6 - 10.3 mg/dL [employer] PROTEIN, TOTAL 7.3 6.1 - 8.1 g/dL [employer] ALBUMIN 4.1 3.6 - 5.1 g/dL [employer] GLOBULIN 3.2 1.9 - 3.7 g/dL (calc) [employer] ALBUMIN/GLOBULI N RATIO 1.3 1.0 - 2.5 (calc) [employer] BILIRUBIN, TOTAL 0.4 0.2 - 1.2 mg/dL [employer] ALKALINE PHOSPHATASE 76 36 - 130 U/L [employer] [facility] AST 14 10 - 40 U/L [employer] ALT 25 9 - 46 U/L [employer] [facility] Blood Blood / Unknown 04/05/2024 3 :18 PM EST 04/05/2024 3:19 PM EST Jakub Phoenix MD LAB - BLOOD DRAW Edited Result - Final Performing Organization Address [facility]/ZIP Co de Phone Number [employer] [facility] [address] [address], [employer] [address] [address] * HEPATITIS C AB W/RFLX HCV RNA, QT, RT PCR (05/20/2021 4:30 PM EST) HEPATITIS C ANTIBODY NON-REACT STEVEN NON-REACT STEVEN [employer] [facility] SIGNAL TO CUT-OFF 0.03 <1.00 [employer] [facility] Comment: HCV antibody was non-reactive. There is no laboratory evidence of HCV infection. In most cases, no further action is required. However, if recent HCV exposure is suspected, a test for HCV RNA (test code 32357) is suggested. For additional information please refer to http://education.Farmigo/faq/PZD59y7 (This link is being provided for informational/ educational purposes only.) Blood Blood / Unknown 05/20/2021 4 :30 PM EST 05/20/2021 4:30 PM EST Jerilyn HOYOS-Nan LAB - BLOOD DRAW Final Resul t Performing Organization Address [facility] Co de Phone Number [employer] [facility] [address] [address], [employer] [address],[facility] [place] [address] * HIV 1/2 AG & AB W/RFLX (4TH GEN) (05/20/2021 4:30 PM EST) HIV AG/AB, 4TH GEN NON-REAC TIVE NON-REAC TIVE [employer] [facility] Comment: HIV-1 antigen and HIV-1/HIV-2 antibodies [...] purpose. For additional information please refer to http://Playlogic.Farmigo/faq/YOR876 (This link is being provided for informational/ educational purposes only.) The performance of this assay has not been clinically validated in patients less than 2 years old. Blood Blood / Unknown 05/20/2021 4 :30 PM EST 05/20/2021 4:30 PM EST Jerilyn Carmen NEURO UROLOGIST-C LAB - BLOOD DRAW Final Resul t [employer] [address] [address], [employer] [address] [address] from Last 3 Months or Most Recently Relevant to Health Maintenance Insurance [facility] [employer] [employer] Care Teams Vice President Underwriting Relationship Specialty Start Date End Date Tara Aguilar PA [facility] [place] [address] PCP - General Primary Care 04/12/23
[2025-01-29 08:59] VITALS: BMI 39.6
--- NOTE | 2025-01-29 15:29 | P.DS_ITS ---
DS: Providers Provider Date of Service: 01/31/25 Date of discharge: 01/31/25 Primary care physician: Gerri Sr NP Admitting clinician: Dc Victor DS: Diagnosis Discharge Diagnosis (1) Chronic SI joint pain: Status: Acute DS: Summary Time Attestation Discharge Coordination Time (in mins): 5 Quality: Safe Use of Opioids Does Pt have an Active Cancer Diagnosis on the Problem List?: No Quality: Stroke Does the patient have a stroke diagnosis?: No Physical Exam Vital Signs: Vital Signs: BMI result Body Mass Index 39.6 Discharge Plan Discharge Patient Disposition: Home, Self-Care Referrals: Gerri Sr NP [Primary Care Provider, Internal Medicine] - 1 Week Discharge Medications: New oxycodone 5 mg tablet 5 mg PO Q4H PRN (Reason: pain) Qty: 20 0RF Rx Instructions: Partial Fill upon patient request. docusate sodium [Colace] 100 mg capsule 100 mg PO BID Qty: 20 0RF (DME) crutches See Rx Instructions .Route .MEDSUPPLY Qty: 1 0RF Rx Instructions: As directed Continued cyclobenzaprine 10 mg tablet 10 mg PO BID PRN (Reason: muscle spasm) atorvastatin 20 mg tablet 20 mg PO BEDTIME trazodone 50 mg tablet 50 mg PO BEDTIME PRN (Reason: insomnia) losartan 25 mg tablet 25 mg PO BEDTIME sumatriptan succinate 100 mg tablet 50 - 100 mg PO .COMPLEX PRN (Reason: migraine headache) 30 Days Qty: 12 6RF Rx Instructions: 50 - 100 mg orally at onset of headache, may repeat in 2 hrs PRN; max 2 tabs per day or 4 tabs/week (may take with Ibuprofen) magnesium oxide 400 mg (241.3 mg magnesium) tablet 400 mg PO BEDTIME 30 Days Qty: 30 6RF Rx Instructions: may hold for loose stools riboflavin (vitamin B2) 400 mg tablet 400 mg PO DAILY 30 Days Qty: 30 6RF (DME) crutches See Rx Instructions .Route .MEDSUPPLY Qty: 1 0RF Rx Instructions: As directed No Action metformin 1,000 mg tablet PO Discharge Orders: Discharge Order (Routine); Ordered 01/31/25 Ordered By: Marcel Bone Diet: Advance to usual diet Activity on Discharge: As tolerated Activity Restrictions/Additional Instructions: After your SI joint fusion surgery we ask you to observe the following restrictions/guidelines: Activity: It is normal to feel some discomfort as you increase your activity, but that will improve with time. We ask you avoid heavy lifting or acitivities that cause pain. As a general rule, 8lbs is a safe limit for lifting right after surgery. We ask you to stay off your left leg after surgery in order to help the SI joint fuse. Please use crutches or walker. You may return to driving when you are off narcotics (such as vicodin, oxycodone, dilaudid, etc), and you are back to normal functional capacity. If you have any concerns please check with office before driving. Return to work is specific to each patient and each surgery, so please speak with your doctor/PA at first follow up. Please bring paperwork such as FMLA at that time if you need it filled out. Follow up: Please call the office, , after surgery to arrange a 3 week follow up for wound check. Wound Care: Your wound was closed with glue, there are no sutures to remove. You may shower on post op day # 1. We ask that you do not let the water soak the wound. If it does get wet, just towel dry lightly. Please do not scrub your incision or place any type of chemical/ointment on the wound. No tub baths, pools or jacuzzis for one month. If you have any leaking or redness from your wound, or fevers, please call office Medications: We will give you a short supply of narcotics after surgery (usually one weeks worth). If you need more please call the office but do not use more than prescribed. You will need to give our office 48 hours notice if you need narcotics refilled and we do not fill narcotics on weekends or evenings. If you are on a narcotic, it is a good idea to take a stool softener such as colace or senna to avoid constipation If you take blood thinner such as aspirin, Plavix, Coumadin, Effient, Eliquis etc for conditions such as Afib, DVT, Pulmonary embolus, coronary disease, stents etc please speak with your surgeon about specific details as to when you can resume these medications. You can resume NSAIDs on post op day 1 (eg: Motrin, Naproxen, etc). Print Language: Prydeinig
[2025-01-31] VITALS (14 sets, daily range): BP systolic 117–205; BP diastolic 68–158; PULSE 61–77; RESP 12–18; TEMP 36.1–36.8; O2SAT 94–98; BMI 46.5
--- NOTE | ~2025-01-31 | FL_ITS ---
EXAMINATION: FLUOROSCOPY GUIDANCE FOR NEEDLE PLACEMENT CLINICAL INFORMATION: SI Joint Fusion Left COMPARISON: None TECHNIQUE: Fluoroscopic guidance provided for left sacroiliac joint fusion. FINDINGS: Images demonstrate surgical instruments projecting over the left pelvis/sacroiliac joint. Lateral views of the lower lumbar spine also submitted. There may be degenerative disc disease and spondylosis of the lower lumbar spine, probably L4-5. See procedure note for detailed findings. FLUOROSCOPY TIME: 40 seconds. 4 submitted images. DOSE AREA PRODUCT: 558 uGy-m2 (microgray-meter squared) FL/FL guidance in OR IMPRESSION: Fluoroscopy guidance for left sacroiliac joint fusion. Electronically signed by: Renee Fink MD 01/31/2025 11:06 AM EDT
--- NOTE | 2025-01-31 07:06 | P.HPSUR_ITS ---
Pre-Procedural Eval Section A - 24 Hr Update-Section A only Date of Service: 01/31/25 The patient is an INPATIENT: No Changes since office visit: No Cold of Flu in the past 2 weeks, No New Medical Problems, No Changes in Medication and No Patient answered all questions The patient has been examined within 24 hours of the surgical procedure. The History & Physical has been completed within 30 days and I have reviewed it.: No Section B - Complete if H&P > 30 days Chief Complaint: Sacrococcygeal disorders, not elsewhere classified Allergies: Allergies Allergy/AdvReac Type Severity Reaction Status Date / Time No Known Allergies Allergy Verified 10/19/24 13:55 Review of Systems Sugical H&P ROS: Negative: Constitution, Cardiovascular, Respiratory, Neurological, Psychiatric, Hem-Onc, Allergic/Immunologic, Gastrointestinal, Genitourinary, Musculoskeletal, Integumentary, Endocrine and Eyes/Ears/Nose/Thr oat Exam Surgical H&P Exam: Normal: HEENT, Normal: Heart, Normal: Lungs, Normal: Extremities, Normal: Abdomen, Normal: Skin and Normal: Neurological (awake, alert,oriented x 3 ) Plan Diagnosis/Plan: Unchanged left si joint fusion Time Spent With Patient Time: Total time managing care of this patient today _5___ minutes.
[2025-01-31 07:33] LABS: Glucose, Whole Blood 359 mg/dL (60-115)
--- NOTE | 2025-01-31 07:42 | PC.NURSE ---
Dr. Gaffney made aware of poc and bp results. awaiting response.
[2025-01-31] MEDS: Lactated Ringers 1,000 ML 100 ML IVCONT (07:53)
--- NOTE | 2025-01-31 08:25 | HO.ANESPROP2 ---
Documented by User: Megan Pemberton NP 01/30/25 08:45 HPI - Anesthesia Eval Consult details Narrative: 44yo M for Left Sacroiliac Joint Fusion BMI 48 PMFSH Active Problems Active Problems: All Active Problems Chronic SI joint pain (Acute) Moderate obstructive sleep apnea (Acute) Back pain (Acute) Migraine without aura (Acute) Postconcussive syndrome (Acute) Obesity, morbid (more than 100 lbs over ideal weight or BMI > 40) (Acute) Obstructive sleep apnea (Acute) Past Medical History Medical History DM2 (diabetes mellitus, type 2) HLD (hyperlipidemia) HTN (hypertension) Obstructive sleep apnea Surgical History Surgical History No pertinent past surgical history Social History Social History Are you a primary assistant child care teacher to a significant other at home: No Do you presently have visiting nurse or other home services: No Patient Tobacco Use Status: Never used Tobacco Have you been hit, kicked, punched, or otherwise hurt by someone within the past year? If so, by whom?: No Are you DNR?: No Advance Directives: No Advance Directives Information Provided: Yes Meds Allergies Allergy/AdvReac Type Severity Reaction Status Date / Time No Known Allergies Allergy Verified 01/31/25 07:44 Home Medications ?Medication ?Instructions ?Recorded ?Confirmed ?Last Taken ?Type atorvastatin 20 mg tablet 20 mg PO BEDTIME 09/20/24 01/29/25 Unknown History cyclobenzaprine 10 mg tablet 10 mg PO BID PRN muscle spasm 09/20/24 01/29/25 Unknown History losartan 25 mg tablet 25 mg PO BEDTIME 09/20/24 01/29/25 Unknown History trazodone 50 mg tablet 50 mg PO BEDTIME PRN insomnia 09/20/24 01/29/25 Unknown History metformin 1,000 mg tablet mg PO 01/30/25 01/30/25 Unknown History Exam Height,Weight and Vital Signs: Height 6 ft 1 in Weight 136.078 kg Assessment and Plan Assessment Anesthesia Assessment: Chart Reviewed Documented by User: Zuleima Gaffney DO 01/31/25 08:30 HPI - Anesthesia Eval Consult details Narrative: 44yo M for Left Sacroiliac Joint Fusion BMI 48 POC glucose was 359 in pre-op today. Patient is only on metformin and does not check blood sugar at home. Admitted to eating a bag of M&Ms last night. SBP range between 140-180 in pre-op today. Patient did not take losartan last night. [facility] Past Medical History Medical History DM2 (diabetes mellitus, type 2) HLD (hyperlipidemia) HTN (hypertension) Obstructive sleep apnea Family History Family history of problems with anesthesia: No Surgical History Surgical History No pertinent past surgical history History of Problems with Anesthesia: No (never had anesthesia) Social History Social History Are you a primary assistant child care teacher to a significant other at home: No Do you presently have visiting nurse or other home services: No Patient Tobacco Use Status: Never used Tobacco Have you been hit, kicked, punched, or otherwise hurt by someone within the past year? If so, by whom?: No Are you DNR?: No Advance Directives: No Advance Directives Information Provided: Yes Meds Allergies Allergy/AdvReac Type Severity Reaction Status Date / Time No Known Allergies Allergy Verified 01/31/25 07:44 Home Medications ?Medication ?Instructions ?Recorded ?Confirmed ?Last Taken ?Type atorvastatin 20 mg tablet 20 mg PO BEDTIME 09/20/24 01/29/25 Unknown History cyclobenzaprine 10 mg tablet 10 mg PO BID PRN muscle spasm 09/20/24 01/29/25 Unknown History losartan 25 mg tablet 25 mg PO BEDTIME 09/20/24 01/29/25 Unknown History trazodone 50 mg tablet 50 mg PO BEDTIME PRN insomnia 09/20/24 01/29/25 Unknown History metformin 1,000 mg tablet mg PO 01/30/25 01/30/25 Unknown History Exam Exam Date and Time: 01/31/25 0820 Height,Weight and Vital Signs: Height 6 ft 1 in Weight 160 kg Vital Signs Temperature 98.3 F 01/31/25 07:20 Pulse Rate 77 01/31/25 07:20 Respiratory Rate 18 01/31/25 07:20 Blood Pressure 205/114 H 01/31/25 07:20 Pulse Oximetry 96 01/31/25 07:20 Oxygen Delivery Method Room Air 01/31/25 07:20 Temperature 98.3 F 01/31/25 07:20 Pulse Rate 77 01/31/25 07:20 Respiratory Rate 18 01/31/25 07:20 Blood Pressure 161/99 H 01/31/25 07:50 Pulse Oximetry 96 01/31/25 07:20 Oxygen Delivery Method Room Air 01/31/25 07:20 Airway Mallampati Class: III TM Dist: <=3cm Neck ROM: Full Loose/Missing/Broken Teeth: Yes (broken #8) Heart: S1S2 Lungs: CTAB Assessment and Plan Assessment Anesthesia Assessment: Anesthesia Plan Discussed and Chart Reviewed Final Anesthetic Review Family History of Problems with Anesthesia: No History of Problems with Anesthesia: No (never had anesthesia) NPO: Yes ASA Class: III Final Preanesthetic Review: No Changes in Pt Med Stat, Meds/Allgs Chart Reviewed, Consent Obtained/Reviewed and Anes Risks/Benef Reviewed Patient Risk: Intermediate Procedure Risk: Intermediate Anesthetic Plan Anesthetic Plan: GA and Agree w/ Assess. and Plan Disposition: Standard PACU
--- NOTE | 2025-01-31 09:48 | W.PM.OPN ---
Operative Note Operative Note Date of Service: 01/31/25 Narrative: Preoperative diagnosis: Left Sacroiliitis Postoperative diagnosis: Same Operative procedure: Left sacroiliac joint fusion with 1 allograft implant Surgeon: Dc Victor MD, PhD Optical Glass Wet Inspector: Marcel Bone PA-C Anesthesia: General Description of procedure: The patient is suffering from left SI joint dysfunction refractory to nonoperative management. The patient has tried and failed all forms of conservative manage med except for an excellent short-term response to a sacroiliac joint injection. The sacroiliac joint was confirmed to be the pain generator after repeated pain blocks. The patient was offered surgical treatment with fixation and arthrodesis of the SI joint. The patient was brought to the operating room and endotracheally intubated. The patient was turned in a prone position on Scout spine table. Prepping and draping was done followed by a time-out. A C-arm was alternately positioned for lateral, oblique oblique and pelvic inlet and outlet projections througout the procedure. Skin markings were made for the anticipated position of the implant. A 2.5 cm longitudinal skin incision was made. A guide pin was inserted in an outlet oblique image for guidance follow-up insertion of dilator and working cannula. This was secured by placing an anchor pin into the ilium. Consideration was taken to cut channels utilizing a series of drills for decortication and internal fixation device placement. The implant was inserted such that it passed through the ilium, across the sacroiliac joint and into the sacrum, thus transfixing the sacroiliac joint. Proper positioning was confirmed on lateral fluoroscopy. The implant was packed with autologous bone collected from remain of the sacrum and ilium. Additional graft material was inserted into the channel void following the implant. The instruments were withdrawn. Upon completion, final images were obtained that showed a satisfactory position of the implant. Hemostasis was done. The incision was closed with an 0 Vicryl to fashion a 3-0 Vicryl subdermal layer after injecting Marcaine. Dermabond was used to approximate the surgeon. All sponge and needle counts were correct. Patient was extubated and transported in a stable condition to recovery room. Estimated blood loss: 15 Operative time: 20 minutes Complications: None Disposition: Discharge to home
[2025-01-31 10:43] LABS: Glucose, Whole Blood 282 mg/dL (60-115)
== END 2025-01-31 11:30 | disposition home or self-care (01) ==
LOC: HO.SSS 07:10
PROVIDERS: PCP Nurse Practitioner Family; Visit Provider Neurological Surgery
PROC: (CPT 27279; principal; 2025-01-31 09:10)
DX: M53.3 Sacrococcygeal disorders, not elsewhere classified (principal); G89.29 Other chronic pain; M46.1 Sacroiliitis, not elsewhere classified; E11.9 Type 2 diabetes mellitus without complications; E78.5 Hyperlipidemia, unspecified; I10 Essential (primary) hypertension; G47.33 Obstructive sleep apnea (adult) (pediatric); Z79.84 Long term (current) use of oral hypoglycemic drugs; Z79.899 Other long term (current) drug therapy
CPT/HCPCS: 27279; 82947; C1713; J0131; J0330; J0690; J1100; J1630; J1885; J2003; J2250; J2405; J2704; J3010; L8699

== ENCOUNTER → 2025-01-31 07:08 | Outpatient (BNV) | payer MEDICAID, SELFPAY | PROVIDERS: PCP Nurse Practitioner Family; Visit Provider Physician Assistant | DX: M53.3 Sacrococcygeal disorders, not elsewhere classified (principal); M46.1 Sacroiliitis, not elsewhere classified; G89.29 Other chronic pain | CPT/HCPCS: 27279; 99499 ==

== ENCOUNTER 2025-02-21 11:08 | Outpatient (AMB) | payer MEDICAID, SELFPAY ==
--- OUTSIDE RECORDS SUMMARY | 2025-02-16 23:59 | XMS_ITS | Continuity of Care Document ---
Author Organization [facility] Address [address] [place] [address]- Care Team Providers Care Police Clerk Name Role Phone Carmen KIRK, Jerilynshira Adams Primary Care Physicia n [id number] Date(s): 11/29/24 - 02/16/[facility] [address] [place] [address]- Attending Physician: David Baldwin MD Admitting Physician: David Baldwin MD Encounter Type: Pre-OutPatient One Time Allergies, Adverse Reactions, Alerts No Known Allergies Medications cyclobenzaprine 10 mg oral tablet TAKE 1 TABLET BY MOUTH 2 TIMES DAILY NEEDED FOR MUSCLE SPASMS. Start Date: 08/21/24 Status: Ordered Medication Dispense Status: Completed Total Allowed Fills: 1 Fills Dispensed: 0 duloxetine 20 mg oral enteric coated capsule 1 capsule = 20 mg, By Mouth, 2 times a day, # 180 capsule, 0 Refills, Maintenance, 05/03/24 8:56:00 AM EST, EC Capsule, Partial fill upon patient request if the prescription is for a schedule II opioid drug. Start Date: 05/03/24 Status: Ordered Medication Dispense Status: Completed Quantity: 180.0 Unit: capsule Total Allowed Fills: 1 Fills Dispensed: 0 Gabapentin See Instructions, PRN ? dose, By Mouth, 0 Refills, Maintenance, 12/28/24 7:56:00 AM EDT, Partial fill upon patient request if the prescription is for a schedule II opioid drug. Start Date: 12/28/24 Status: Ordered Medication Dispense Status: Completed Total Allowed Fills: 1 Fills Dispensed: 0 losartan 25 mg oral tablet 25 mg, 1, tablet, By Mouth, Daily, # 90 tablet, Refills 0, Maintenance, 05/03/24 8:57:00 AM EST, Partial fill upon patient request if the prescription is for a schedule II opioid drug. Start Date: 05/03/24 Status: Ordered Medication Dispense Status: Completed Quantity: 90.0 Unit: tablet Total Allowed Fills: 1 Fills Dispensed: 0 magnesium oxide 400 mg oral tablet 1 tablet = 400 mg, TAKE 1 TABLET BY MOUTH EVERYDAY AT BEDTIME Start Date: 10/24/24 Status: Ordered Medication Dispense Status: Completed Total Allowed Fills: 1 Fills Dispensed: 0 QUEtiapine 50 mg oral tablet, extended release 1 tablet = 50 mg, By Mouth, Daily, # 30 tablet, 0 Refills, Maintenance, 10/24/24 3:09:00 PM EDT, ER Tablet, Partial fill upon patient request if the prescription is for a schedule II opioid drug. Start Date: 10/24/24 Status: Ordered Medication Dispense Status: Completed Quantity: 30.0 Unit: tablet Total Allowed Fills: 1 Fills Dispensed: 0 Sumatriptan Once, 0 Refills, Maintenance, 12/28/24 7:56:00 AM EDT, Partial fill upon patient request if the prescription is for a schedule II opioid drug. Start Date: 12/28/24 Status: Ordered Medication Dispense Status: Completed Total Allowed Fills: 1 Fills Dispensed: 0 traZODone 50 mg oral tablet 50 mg, 1, tablet, By Mouth, Daily at bedtime, Maintenance, 08/07/24 2:32:00 PM EDT Start Date: 08/07/24 Status: Ordered Medication Dispense Status: Completed Total Allowed Fills: 1 Fills Dispensed: 0 Problem List Condition Confirmation Course Effective Dates Status H ealth Status Informant Lumbar radiculopathy Confirmed Active Neck pain Confirmed Active Severe obesity Confirmed Active Social History Social History Type Response Smoking Status 5-9 cigarettes (betw een 1/4 to 1/2 pack)/day in last 30 days; Type: Cigarettes entered on: 07/06/24 Sexual Orientation Self described orien tation: ; Straight or heterosexual Sex Sex Representation Male (finding) Patient Care team information Care Team Personnel Name: Carmen KIRK, Jerilyn Adams Position: Reference Physician Member Role: PCP Address: [address] [place] [address] Telecom: Care Team Related Persons Name: YAS LAMBERT Name: BLANCA TORRES Insurance Providers Guarantor name: CANDIDO Health Plan Information #: 1 Payer: [employer]ER [employer] Payer Identifier: CANDIDO Member Number: [id number] Group Number: [id number] Subscriber Identifier: [id number] Relationship to Subscriber: self Coverage Type: MEDICAID Coverage Verification Date: NA Telecom: CANDIDO Address:
--- OUTSIDE RECORDS SUMMARY | 2025-02-20 23:59 | XMS_ITS | Continuity of Care Document ---
Author Organization [facility] Address [address] [place] [address]- Care Team Providers Care Title Coordinator Name Role Phone Carmen KIRK, Jerilyn Adams Primary Care Physicia n [facility] [id number] Date(s): 01/21/25 - 02/20/[address] [address]- Encounter Diagnosis Procedure and treatment not carried out, unspecified reason(Final) - Discharge Disposition: A-D/C Home Attending Physician: Jerilyn Morales NP Admitting Physician: Jerilyn Morales NP Encounter Type: Pre-OutPatient One Time Allergies, Adverse [...] Position: Reference Physician Member Role: PCP Address: [address] Telecom: Care Team Related Persons Name: YAS LAMBERT Name: BLANCA TORRES Insurance Providers Guarantor name: CANDIDO Health Plan Information #: 1 Payer: AUTO OTHER Payer Identifier: CANDIDO Member Number: [id number] Group Number: Subscriber Identifier: Relationship to Subscriber: self Coverage Type: Auto Insurance (includes no fault) Coverage Verification Date: NA Telecom: NA Address: NA Health Plan Information #: 2 Payer: [employer]USTOMER SERVICE Payer Identifier: NA Member Number: [id number] Group Number: Subscriber Identifier: [id number] Relationship to Subscriber: self Coverage Type: MEDICAID Coverage Verification Date: NA Telecom: NA Address: NA
--- NOTE | 2025-02-21 11:11 | HO.SPINEOV ---
Intake Visit Reasons: 1st post op Intake Note: Mr. Antoine is here today for his 1st post op. Supervisor Telephone Clerks Required: No Allergies No Known Allergies Allergy (Verified 01/31/25 07:44) Assessment & Plan Assessment & Plan (1) S/P fusion of sacroiliac joint: Code(s): Z98.1 - Arthrodesis status Category: Medical Plan Ad is a pleasant 45-year-old male who comes in today for his 1st postoperative visit after having left-sided SI joint fusion completed by Dr. Victor a few weeks ago. He reports that a few days after surgery he started to get pretty good relief from his baseline pain. Unfortunately this pain has since returned to what it was prior to surgery. He did report that he only really utilized a cane to ambulate in the weeks after surgery, and essentially just remained bedbound aside from walking around his home. I encouraged him to try walking around throughout the day, and doing some light stretching just to mobilize a bit more and potentially relieve some his pain. Unfortunately it sounds like he may not have benefitted from his SI joint fusion, but I would like to give him a little bit more time to see if this is related to inflammation as he did report some pain relief days after surgery. No new neurological deficits. The patient ambulates well and rises from a seated position without difficulty. He utilizes a cane to ambulate. His posterior incision site is closed and well healed. I would like to see Ad back in 6 weeks with a set of x-rays. If he continues to report the same pain at that time, we may have to take another look at the L4-5 segment on his MRI. In the interim I will refill his oxycodone 1 more time to help with pain control. Elio Victor MD,PhD [facility] Medications: Changed From oxycodone Partial Fill upon patient request. 5 mg PO Q4H PRN 20 tabs 0RF pain To oxycodone Partial Fill upon patient request. 5 mg PO Q8H PRN 20 tabs 0RF pain Coding Level of Care Code Global (17089) Diagnoses S/P fusion of sacroiliac joint Z98.1
--- OUTSIDE RECORDS SUMMARY | 2025-02-21 17:17 | XMS_ITS | Clinical Summary ---
Author Organization [facility] Address [address] [place] [address] 7 [place] [address] Care Team Providers Care Carton And Can Supply Supervisor Name Role Phone Unavailable Primary Care Provider Unavailabl e Social History Tobacco Use Types Packs/Day Years [...] 1-dose 75+ series) 02/13/2056 HIV Screening Completed 05/20/2021 Hepatitis B Vaccines Completed 04/05/2024, 02/24/2024 [...]
--- OUTSIDE RECORDS SUMMARY | 2025-02-21 17:17 | XMS_ITS | Clinical Summary ---
Author Organization [facility] Address [address] [place] [address] Phone Care Team Providers Care Non Licensed Nuclear Equipment Operator Name Role Phone Tal Phoenix MD Primary Care Provider [phone] Allergies No known active allergies Medications gabapentin [...] 1991 Diabetes: Annual Retina Eye Exam 1991 HPV Vaccines (1 - 3-dose SCDM series) 02/13/2008 HIV Screening 03/07/2022 Social Influencers of Health Screening 03/07/2022 Depression Screening 04/04/2024 COVID-19 Vaccine (2 - season) 2024 05/20/2021 Influenza Vaccine (#1) 2024 02/24/2024 Diabetes: Blood Sugar Control Test (HGBA1C) 01/29/2025 04/05/2024 Diabetes: Annual Urine Albumin-Creatinine Ratio (uACR) 04/05/2025 04/05/2024 Diabetes: Annual GFR (Glomerular Filtration Rate) 04/05/2025 04/05/2024 Hypertension/CHF/CAD Annual BMP Blood Test 04/05/2025 04/05/2024 Cholesterol Screening (Lipid Panel) 04/05/2029 04/05/2024, 04/05/2024, 05/19/2022, Additional history exists DTaP,Tdap,and Td Vaccines (2 - Td or Tdap) 11/14/2031 11/13/2021 RSV Immunization Adult Patients (1 - 1-dose 75+ series) 02/13/2056 Hepatitis C Screening Completed 05/20/2021 Hepatitis B [...] to complete this topic Insurance [employer] [facility] HE[facility] MEDICAID - [place] Care Teams Non Licensed Nuclear Equipment Operator Relationship Specialty Start Date End Date Tal Phoenix MD [address] [place] [phone] PCP - General Cardiology 03/01/24
--- OUTSIDE RECORDS SUMMARY | 2025-02-21 17:17 | XMS_ITS | Clinical Summary ---
Author Organization [facility] Address [address] [place] [address] Care Team Providers Care Manager Presentation Name Role Phone Pcp, No Primary Care [...] of 3 - 19+ 3-dose series) 02/13/2000 Influenza Vaccine 11/02/2024 COVID-19 Vaccine (2023-2 5 season) 2024 HPV Vaccines (No Doses Required) Completed Pneumococcal Vaccine: Pediat nandini (0-5 Years) and At-Risk Patients (6 to 49 Years) Aged Out No longer eligible b ased on patient's age to complete this topic Insurance [facility] [employer] Care Teams Manager Presentation Relationship Specialty Start Date End Date Pcp, No PCP - General General Medicine 01/25/16
== END 2025-02-21 11:25 | disposition home or self-care (01) ==
LOC: HO.HNS 11:09
PROVIDERS: PCP Nurse Practitioner Family; Visit Provider Physician Assistant
DX: Z98.1 Arthrodesis status (principal)
CPT/HCPCS: 99024

== ENCOUNTER → 2025-02-21 11:08 | Outpatient (BNVA) | payer MEDICAID, SELFPAY | PROVIDERS: PCP Nurse Practitioner Family; Visit Provider Physician Assistant | DX: Z98.1 Arthrodesis status (principal) | CPT/HCPCS: 99212 ==

== ENCOUNTER 2025-03-29 08:10 | Outpatient (REF) | payer MEDICAID, SELFPAY ==
--- NOTE | ~2025-03-29 | XR_ITS ---
EXAMINATION: XR SACROILIAC JOINTS CLINICAL INFORMATION: Z98.1 - Arthrodesis status COMPARISON: Fluoroscopy 01/31/2025 TECHNIQUE: 2 views of the sacroiliac joints FINDINGS: There is a 1.8 x 1.3 cm ossific density projected over the left ilium, at the level of the the lower third of the SI joint. This is of uncertain etiology, could represent postsurgical results. The superior portion of the left SI joint is not visualized. The mid/inferior portion of the joint is visible. The right SI joint appears unremarkable. Gas and stool projected over the sacrum and coccyx, limiting evaluation of the frontal view. No acute fractures identified. Symphysis pubis is intact. XR/XR sacroiliac joint 1-2V IMPRESSION: Ossific density projected over the left ilium marginating the SI joint. This of uncertain etiology. This could reflect postsurgical changes. Correlate with the surgical history. Superior portion of the SI joint is not visualized. This could be related to positioning versus joint space narrowing/ankylosis. Electronically signed by: Binh Hodges MD 03/29/2025 01:43 PM EST
--- OUTSIDE RECORDS SUMMARY | 2025-04-01 08:13 | XMS_ITS | Clinical Summary ---
Author Organization [facility] Address [address] [place] [address] Care Team Providers Care Supervisor General Name Role Phone Pcp, No Primary Care [...] patient's age to complete this topic Insurance [facility] [employer] Care Teams Supervisor General Relationship Specialty Start Date End Date Pcp, No PCP - General General Medicine 01/25/16
--- OUTSIDE RECORDS SUMMARY | 2025-04-01 08:13 | XMS_ITS | Clinical Summary ---
Author Organization [facility] Address [address] [place] [address] Phone Care Team Providers Care [place] Boatman Name Role Phone Tal Phoenix MD Primary Care Provider [phone] Allergies No known active allergies Medications gabapentin [...] to complete this topic Insurance [employer] [facility]AN MEDICAID - [place] Care Teams [place] Boatman Relationship Specialty Start Date End Date Tal Phoenix MD [address] [place] [phone] PCP - General Cardiology 03/01/24
--- OUTSIDE RECORDS SUMMARY | 2025-04-01 08:13 | XMS_ITS | Clinical Summary ---
Author Organization [facility] Address [address] [place] [address] 7 [place] [address] Care Team Providers Care Photocopying Equipment Repairer Name Role Phone Unavailable Primary Care Provider [...]
== END 2025-03-29 08:11 ==
LOC: HO.HOSX 08:10
PROVIDERS: Visit Provider Physician Assistant
DX: M54.9 Dorsalgia, unspecified (principal); Z98.1 Arthrodesis status
CPT/HCPCS: 72200; 99212

== ENCOUNTER 2025-03-29 09:03 | Outpatient (AMB) | payer MEDICAID, SELFPAY ==
--- OUTSIDE RECORDS SUMMARY | 2025-03-29 09:06 | XMS_ITS | Clinical Summary ---
Author Organization [facility] Address [address] [place] [address] 7 [place] [address] Care Team Providers Care Evening Or Night Nurse Supervisor Name Role Phone Unavailable Primary Care [...]
--- OUTSIDE RECORDS SUMMARY | 2025-03-29 09:06 | XMS_ITS | Clinical Summary ---
Author Organization [facility] Address [address] [place] [address] Care Team Providers Care Silverware Cleaner Name Role Phone Pcp, No Primary Care [...] series) 02/13/2000 Influenza Vaccine 11/02/2024 COVID-19 Vaccine ( - 2024-2 6 season) 2024 HPV Vaccines (No Doses Required) Completed Pneumococcal Vaccine: Pediat nandini (0-5 Years) and At-Risk Patients (6 to 49 Years) Aged Out No longer eligible b ased on patient's age to complete this topic Insurance [facility] WORK[employer] Care Teams Silverware Cleaner Relationship Specialty Start Date End Date Pcp, No PCP - General General Medicine 01/25/16
--- OUTSIDE RECORDS SUMMARY | 2025-03-29 09:06 | XMS_ITS | Clinical Summary ---
Author Organization [facility] Address [address] [place] [address] Phone Care Team Providers Care Internal Combustion Engine Subassembler Name Role Phone Tal Phoenix MD Primary Care Provider [phone] Allergies No known active allergies Medications gabapentin [...] to complete this topic Insurance [employer] [facility] HEALTH PLAN MEDICAID - [place] Care Teams Internal Combustion Engine Subassembler Relationship Specialty Start Date End Date Tal Phoenix MD [address] [place] [phone] PCP - General Cardiology 03/01/24
--- NOTE | 2025-03-29 09:08 | HO.SPINEOV ---
Intake Visit Reasons: 2nd post op w/ X-rays Intake Note: Mr. Antoine is here today for his 2nd post op with x-rays. Lawn Caretaker Required: No Allergies No Known Allergies Allergy (Verified 01/31/25 07:44) Assessment & Plan Assessment & Plan (1) Back pain: Code(s): M54.9 - Dorsalgia, unspecified Category: Medical Plan Mr Antoine unfortunately his SI joint fusion did not give him the amount of relief of his back pain that he was hoping. He also has pain that travels down the back of his legs. Dr. Victor and I had previously evaluated him for 2 potential sources of his back pain. The 1st was the SI joint, with the thought process that since he had good relief from the injections that if we could help his pain with a more minor procedure like an SI joint fusion that would be the shorter recovery with a potential up side. The 2nd option was a severely collapsed disc at L4-5 with Modic endplate changes. We considered him a candidate for an L4-5 oblique lumbar interbody fusion if the SI joint fusion failed to produce significant results. It looks like he has heading in the direction of L4-5 fusion. His x-rays today on the SI joint look fine, the implant is where it was left in the operating room and there is no signs of shifting or movement. The patient and I reviewed the procedure L4-5 oblique lumbar interbody fusion at length. He would like to move ahead with the surgery. Again we quoted 60-70% success rate. The patient was given risk and benefits of oblique lumbar interbody fusion surgery including but not limited to infection, hematoma, nerve injury, durotomy, weakness, bowel/bladder injury, persistent pain, and pseudoarthosis or instrumentation failure. We also discussed the option to continue with conservative treatment and patient wishes to proceed with surgery. They are aware they should stop NSAIDs 7 days prior to surgery. All questions were answered to the best of our ability. If there is anything about this patients medical history that we have overlooked or concerns you have about us proceeding with surgery we would appreciate any input you can offer Total amount of time spent in this visit was 20 minutes in discussion of symptoms, lumbar MRI at [place] and x-ray imaging results and subsequent plan of care Marcel Victor MD,PhD [facility] Orders: Orders XR sacroiliac joint 1-2V Today Z98.1 - Arthrodesis status Coding Level of Care Code Est Pt Level 3 (069[address]) Diagnoses Back pain M54.9
== END 2025-03-29 10:13 | disposition home or self-care (01) ==
LOC: HO.HNS 09:04
PROVIDERS: PCP Nurse Practitioner Family; Visit Provider Physician Assistant
DX: M54.9 Dorsalgia, unspecified (principal)
CPT/HCPCS: 99024

== ENCOUNTER → 2025-03-29 09:05 | Outpatient (BNV) | payer MEDICAID, SELFPAY | PROVIDERS: Visit Provider Radiology Diagnostic Ultrasound | DX: M85.88 Other specified disorders of bone density and structure, other site (principal); Z98.1 Arthrodesis status | CPT/HCPCS: 72200 ==